=== PATIENT | female | born 1995 | race Two or more races ===

== ENCOUNTER 2018-04-24 02:03 | Emergency (ER) | payer OTHER ==
[~2018-04-24] VITALS: Ht 154.9 cm; Wt 52.9 kg
--- NOTE | 2018-04-24 02:14 | ED.ADGEN ---
Past History Past Medical History: UTI Adult General Chief Complaint Chief Complaint ".. I got this back pain... here on the Lt.. lower.. I was in golf game yesterday.. and maybe pulled a muscle...".. " I was to fly back this morning to [facility].. but I got sick....." HPI HPI Patient is a 22 year old female who presents with above hx and complaint Lt. lower back pain. Pt. denies back pain or back injury yesterday. Pt. did injury Lt shoulder yesterday during golf game yesterday. Pt. Visiting from [facility]. Pt. has a current fever and lt flank pain. No prior hx of UTI, STD or back injury. Pt. normally healthy. No specific ill contacts. No hx of renal stones. No hx of immunosuppression. Review of Systems Review of Systems Constitutional: Denies fever or chills []( Has fever on presentation) Eyes: Denies change in visual acuity, redness, or eye pain [] HENT: Denies nasal congestion or sore throat [] Respiratory: Denies cough or shortness of breath [] Cardiovascular: No additional information not addressed in HPI [] GI: Denies abdominal pain, nausea, vomiting, bloody stools or diarrhea [] : Denies dysuria or hematuria [] Musculoskeletal: Complaints of Lt lower back pain and Lt shoulder pain. Integument: Denies rash or skin lesions [] Neurologic: Denies headache, focal weakness or sensory changes [] Endocrine: Denies polyuria or polydipsia [] All other systems were reviewed and found to be within normal limits, except as documented in this note. Family History Family History Non-contributory Current Medications Current Medications Current Medications Medications (Trade) Dose Ordered Sig/Bebe Start Time Stop Time Status Last Admin Dose Admin Ceftriaxone Sodium 1 gm/ Sodium Chloride 50 ml @ 100 mls/hr 1X ONCE 04/24/18 03:00 04/24/18 03:29 DC 04/24/18 03:13 100 MLS/HR Ceftriaxone Sodium (Rocephin) 1 gm STK-MED ONCE 04/24/18 03:07 04/24/18 03:08 DC Ketorolac Tromethamine (Toradol) 30 mg 1X ONCE 04/24/18 03:00 04/24/18 03:01 DC 04/24/18 03:12 30 MG Lactated Ringer's 1,000 ml @ 75 mls/hr 1X ONCE 04/24/18 04:00 04/24/18 04:40 DC 04/24/18 03:41 75 MLS/HR Phenazopyridine HCl (Pyridium) 200 mg 1X ONCE 04/24/18 04:30 04/24/18 04:31 DC 04/24/18 04:26 200 MG Sodium Chloride 50 ml @ As Directed STK-MED ONCE 04/24/18 03:07 04/24/18 03:08 DC Trimethoprim/ Sulfamethoxazole (Bactrim Ds) 1 tab 1X ONCE 04/24/18 04:00 04/24/18 04:01 DC 04/24/18 04:26 1 TAB See Nursing for home meds. Allergies Allergies Allergies Coded Allergies Type Severity Reaction Last Updated Verified No Known Drug Allergies 04/24/18 No Physical Exam Physical Exam Constitutional: Well developed, well nourished, moderately acute distress, non- toxic appearance. [] HENT: Normocephalic, atraumatic, bilateral external ears normal, oropharynx moist, no oral exudates, nose normal. [] Eyes: PERRLA, EOMI, conjunctiva normal, no discharge. [] Neck: Normal range of motion, no tenderness, supple, no stridor. [] Cardiovascular:Heart rate regular rhythm, no murmur [] Lungs & Thorax: Bilateral breath sounds clear to auscultation [] Abdomen: Bowel sounds normal, soft, mild supra pubic tenderness, no masses, no pulsatile masses. [] Declines pelvic exam at this time. Skin: Warm, dry, no erythema, no rash. [] Back: Lt.lower Lumbar tenderness, mild Lt CVA tenderness. [] Extremities: mild tenderness Lt shoulder, no cyanosis, no clubbing, ROM intact, no edema. [] Neurologic: Alert and oriented X 3, normal motor function, normal sensory function, no focal deficits noted. []DTR + 2 patella. Psychologic: Affect anxious, judgement normal, mood normal. [] Current Patient Data Vital Signs Vital Signs Date Time Temp Pulse Resp B/P (MAP) Pulse Ox O2 Delivery O2 Flow Rate FiO2 04/24/18 04:15 100.1 115 16 106/69 (81) 100 Room Air Lab Results Laboratory Tests Test 04/24/18 01:48 04/24/18 02:30 04/24/18 02:58 POC Urine HCG, Qualitative hcg negative (Negative) Urine Collection Type Unknown Urine Color Yellow Urine Clarity Hazy Urine pH 7.0 Urine Specific [place] 1.015 Urine Protein 100 mg/dl (NEG-TRACE) Urine Glucose (UA) Neg mg/dL (NEG) Urine Ketones (Stick) 15 mg/dL (NEG) Urine Blood Trace (NEG) Urine Nitrite Neg (NEG) Urine Bilirubin Neg (NEG) Urine Urobilinogen Dipstick 1 mg/dL (0.2 mg/dL) Urine Leukocyte Esterase Large (NEG) Urine RBC Occ /HPF (0-2) Urine WBC >40 /HPF (0-4) Urine Squamous Epithelial Cells Few /LPF Urine Bacteria Many /HPF (0-FEW) Urine Opiates Screen Neg (NEG) Urine Methadone Screen Neg (NEG) Urine Barbiturates Neg (NEG) Urine Phencyclidine Screen Neg (NEG) Urine Amphetamine/Methamphetamine Neg (NEG) Urine Benzodiazepines Screen Neg (NEG) Urine Cocaine Screen Neg (NEG) Urine Cannabinoids Screen Neg (NEG) Urine Ethyl Alcohol Neg (NEG) White Blood Count 17.4 x10^3/uL (4.0-11.0) H Red Blood Count 4.47 x10^6/uL (3.50-5.40) Hemoglobin 12.2 g/dL (12.0-15.5) Hematocrit 36.6 % (36.0-47.0) Mean Corpuscular Volume 82 fL (79-100) Mean Corpuscular Hemoglobin 27 pg (25-35) Mean Corpuscular Hemoglobin Concent 33 g/dL (31-37) Red Cell Distribution Width 13.4 % (11.5-14.5) Platelet Count 295 x10^3/uL (140-400) Neutrophils (%) (Auto) 93 % (31-73) H Lymphocytes (%) (Auto) 5 % (24-48) L Monocytes (%) (Auto) 2 % (0-9) Eosinophils (%) (Auto) 0 % (0-3) Basophils (%) (Auto) 0 % (0-3) Neutrophils # (Auto) 16.2 x10^3uL (1.8-7.7) H Lymphocytes # (Auto) 0.8 x10^3/uL (1.0-4.8) L Monocytes # (Auto) 0.3 x10^3/uL (0.0-1.1) Eosinophils # (Auto) 0.0 x10^3/uL (0.0-0.7) Basophils # (Auto) 0.1 x10^3/uL (0.0-0.2) Segmented Neutrophils % 84 % (35-66) H Band Neutrophils % 11 % (0-9) H Lymphocytes % 5 % (24-48) L Platelet Estimate Adequate (ADEQUATE) Sodium Level 137 mmol/L (136-145) Potassium Level 3.3 mmol/L (3.5-5.1) L Chloride Level 101 mmol/L (98-107) Carbon Dioxide Level 26 mmol/L (21-32) Anion Gap 10 (6-14) Blood Urea Nitrogen 10 mg/dL (7-20) Creatinine 0.7 mg/dL (0.6-1.0) Estimated GFR (Cockcroft-Gault) 106.7 Glucose Level 98 mg/dL (70-99) Calcium Level 8.6 mg/dL (8.5-10.1) Total Bilirubin 0.6 mg/dL (0.2-1.0) Direct Bilirubin 0.1 mg/dL (0.0-0.2) Aspartate Amino Transferase (AST) 15 U/L (15-37) Alanine Aminotransferase (ALT) 15 U/L (14-59) Alkaline Phosphatase 61 U/L (46-116) Total Protein 7.7 g/dL (6.4-8.2) Albumin 3.6 g/dL (3.4-5.0) EKG EKG [] Radiology/Procedures Radiology/Procedures [] Course & Med Decision Making Course & Med Decision Making Pertinent Labs and Imaging studies reviewed. (See chart for details). Pt. to push vit. c drinks and fruit juices. Take tylenol and ibuprofen for pain. Take Bactrim DS twice a day. Must follow up urine cultures. Return if any concerns. Pt. reports marked improvement of symptoms at time of discharge. [] Final Impression Final Impression 1. Back Pain 2. UTI[] Dragon Disclaimer Dragon Disclaimer This electronic medical record was generated, in whole or in part, using a voice recognition dictation system. ELZBIETA WALLER MD Apr 24, 2018 02:14
[2018-04-24 02:59] LABS: BARBITURATES NEG (NEG); BENZODIAZEPINES NEG (NEG); CANNABINOIDS NEG (NEG); COCAINE NEG (NEG); METHADONE NEG (NEG); OPIATES NEG (NEG); PHENCYCLIDINE NEG (NEG)
[2018-04-24 03:00] LABS: CLARITY,URINE HAZY; COLOR,URINE YELLOW
[2018-04-24] MEDS ORDERED: KETOROLAC 30 MG/ML VIAL. IV ONE (03:00)
[2018-04-24] MEDS ORDERED: IV RINGERS SOLUTION,LACTATED 1,000 ML IV SCH (03:00)
[2018-04-24 03:01] LABS: BACTERIA,URINE MANY /HPF (0-FEW); BILIRUBIN,URINE NEG (NEG); GLUCOSE,URINE NEG (NEG); NITRITE,URINE NEG (NEG); RBC,URINE OCC /HPF (0-2); SQUAMOUS EPITHELIAL CELL,UR FEW /LPF; UROBILINOGEN,URINE 1 mg/dL (0.2 mg/dL); WBC,URINE >40 /HPF (0-4)
[2018-04-24 03:04] LABS: AMPHETAMINE/METHAMPHETAMINE NEG (NEG)
[2018-04-24] MEDS ORDERED: IV NORMAL SALINE 50ML 50 ML ONE (03:07)
[2018-04-24] MEDS ORDERED: cefTRIAXone SODIUM 1 GM VIAL IV ONE (03:07)
[2018-04-24 03:18] LABS: BASO # 0.1 x10^3/uL (0.0-0.2); BASO % 0 % (0-3); EOS % 0 % (0-3); HEMATOCRIT 36.6 % (36.0-47.0); HEMOGLOBIN 12.2 g/dL (12.0-15.5); LYMPH # 0.8 x10^3/uL (1.0-4.8); LYMPH % 5 % (24-48); MEAN CORPUSCULAR HEMOGLOBIN 27 pg (25-35); MEAN CORPUSCULAR HGB CONC 33 g/dL (31-37); MEAN CORPUSCULAR VOLUME 82 fL (79-100); MONO # 0.3 x10^3/uL (0.0-1.1); MONO % 2 % (0-9); NEUT # 16.2 x10^3uL (1.8-7.7); NEUT % 93 % (31-73); PLATELET COUNT 295 x10^3/uL (140-400); RED BLOOD COUNT 4.47 x10^6/uL (3.50-5.40); RED CELL DISTRIBUTION WIDTH 13.4 % (11.5-14.5); WHITE BLOOD COUNT 17.4 x10^3/uL (4.0-11.0)
[2018-04-24 03:26] LABS: ALBUMIN 3.6 g/dL (3.4-5.0); CALCIUM 8.6 mg/dL (8.5-10.1); CREATININE 0.7 mg/dL (0.6-1.0); DIRECT BILIRUBIN 0.1 mg/dL (0.0-0.2); GFR 106.7; POTASSIUM 3.3 mmol/L (3.5-5.1); TOTAL BILIRUBIN 0.6 mg/dL (0.2-1.0); TOTAL PROTEIN 7.7 g/dL (6.4-8.2)
[2018-04-24 03:43] LABS: % BANDS 11 % (0-9); % LYMPHS 5 % (24-48); % SEGS 84 % (35-66); PLT ESTIMATE ADEQUATE (ADEQUATE)
[2018-04-24] MEDS ORDERED: SMZ/TMP 800/160MG TABLET. PO ONE (04:00)
[2018-04-24] MEDS ORDERED: IV RINGERS SOLUTION,LACTATED 1,000 ML IV ONE (04:00)
[2018-04-24] MEDS ORDERED: SULF1TAB24 PO (04:07)
[2018-04-24 04:15] VITALS: BP 106/69
[2018-04-24] MEDS ORDERED: PHENAZOPYRIDINE 200 MG TABLET. PO ONE (04:30)
== END 2018-04-24 04:31 | disposition home or self-care (01) ==
LOC: ER 02:03
DX: N39.0 Urinary tract infection, site not specified (principal); M54.5 Low back pain; M25.512 Pain in left shoulder
CPT/HCPCS: 36415; 80048; 80076; 80307; 81001; 81025; 85007; 85025; 87040; 87086; 96365; 96375; 99284; J0696; J1885; J7120; 87186; G0479

== ENCOUNTER 2019-04-05 12:56 | Emergency (ER) | payer OTHER ==
[~2019-04-05] VITALS: Ht 154.9 cm; Wt 52.6 kg
[~2019-04-05 12:56] MED LIST: SULF1TAB24 PO
[2019-04-05 12:58] VITALS: BP 117/70
--- NOTE | 2019-04-05 13:39 | PHYS DOC ---
Past History Past Medical History: No Pertinent History, UTI Past Surgical History: No Surgical History Smoking: Non-smoker Alcohol Use: None Drug Use: None Adult General Chief Complaint Chief Complaint: EARACHE/EAR PAIN HPI HPI Patient is a 23-year-old female presents with left ear bleeding and dullness to sounds. Patient was going for a tandem parachute jump, 14,000 feet elevation, when she landed she pulled out her ear plug and noted there was blood. She denies any recent upper respiratory infection. Denies any pain. No nausea, vomiting, dizziness, no other complaints. No fever. Nothing makes the symptoms better or worse.[] Review of Systems Review of Systems Constitutional: Denies fever or chills [] Eyes: Denies change in visual acuity, redness, or eye pain [] HENT: Denies nasal congestion or sore throat, see history of present illness [] Respiratory: Denies cough or shortness of breath [] Cardiovascular: No chest pain or palpitations[] GI: Denies abdominal pain, nausea, vomiting, bloody stools or diarrhea [] : Denies dysuria or hematuria [] Musculoskeletal: Denies back pain or joint pain [] Integument: Denies rash or skin lesions [] Neurologic: Denies headache, focal weakness or sensory changes [] Endocrine: Denies polyuria or polydipsia [] All other systems were reviewed and found to be within normal limits, except as documented in this note. Allergies Allergies Allergies Coded Allergies Type Severity Reaction Last Updated Verified No Known Drug Allergies 04/24/18 No Physical Exam Physical Exam Constitutional: Well developed, well nourished, no acute distress, non-toxic appearance. [] HENT: Normocephalic, atraumatic, bilateral external ears normal, left TM has a perforation approximately the 6 o'clock position. No active bleeding, there is blood in the year canal. Oropharynx moist, no oral exudates, nose normal. [] Eyes: PERRLA, EOMI, conjunctiva normal, no discharge. [] Neck: Normal range of motion, no tenderness, supple, no stridor. [] Cardiovascular:Heart rate regular rhythm, no murmur [] Lungs & Thorax: Bilateral breath sounds clear to auscultation [] Abdomen: Not Examined[] Skin: Warm, dry, no erythema, no rash. [] Back: No tenderness, no CVA tenderness. [] Extremities: No tenderness, no cyanosis, no clubbing, ROM intact, no edema. [] Neurologic: Alert and oriented X 3, normal motor function, normal sensory function, no focal deficits noted. [] Psychologic: Affect normal, judgement normal, mood normal. [] EKG EKG [] Radiology/Procedures Radiology/Procedures [] Course & Med Decision Making Course & Med Decision Making Pertinent Labs and Imaging studies reviewed. (See chart for details) Medical decision making: Patient appears to have a perforated TM secondary to barotrauma. There is no evidence of an infection. No evidence meningitis, encephalitis, or intractable dizziness.[] Dragon Disclaimer Dragon Disclaimer This electronic medical record was generated, in whole or in part, using a voice recognition dictation system. Departure Departure: Impression: Primary Impression: Tympanic membrane perforation Disposition: 01 HOME, SELF-CARE Condition: IMPROVED Referrals: RADHA KEBEDE PA-C (PCP) Follow-up in 2 days Patient Instructions: Tympanic Membrane Perforation-SportsMed Additional Instructions: Follow-up with your regular doctor in 2 days. No swimming. Wear plugs when you take a shower to prevent excess water from getting in the ear. Return to the ER if worsening pain, worsening bleeding, purulent drainage, or any other concerns. Problem Qualifiers Primary Impression: Tympanic membrane perforation Laterality: left Qualified Codes: H72.92 - Unspecified perforation of tympanic membrane, left ear ANTHONYSHAWNSOHEILA MULLINSJENNIFER VILLANUEVA Apr 05, 2019 13:39
== END 2019-04-05 13:48 | disposition home or self-care (01) ==
LOC: ER 12:56
DX: H72.92 Unspecified perforation of tympanic membrane, left ear (principal); Z87.440 Personal history of urinary (tract) infections
CPT/HCPCS: 99281

== ENCOUNTER 2020-02-14 04:15 | Emergency (ER) | payer OTHER ==
[~2020-02-14] VITALS: Ht 154.9 cm; Wt 52.9 kg
[2020-02-14 04:25] VITALS: BP 117/70
[2020-02-14] MEDS ORDERED: CARB-116 OT (04:48)
--- NOTE | 2020-02-14 04:48 | PHYS DOC ---
Past History Past Medical History: No Pertinent History, UTI Past Surgical History: Other Additional Past Surgical Histo: Ear tubes Smoking: Non-smoker Alcohol Use: None Drug Use: None General Adult EDM: Chief Complaint: EARACHE/EAR PAIN HPI: HPI: 24-year-old female reports awakening early this morning with report of sensation that her right ear was "plugged". Patient reports that had a similar experience over the past 2 days for which patient trialed using a beeswax candle to dry out the wax. Patient reports issues with her ears and with pressure especially when she flies. Denies fever or chills. Denies nasal congestion. Review of Systems: Review of Systems: Constitutional: Denies fever or chills Eyes: Denies redness or eye pain HENT: Denies nasal congestion; reports sensation that her right ear is plugged Respiratory: Denies cough or shortness of breath Cardiovascular: Denies chest pain or palpitations GI: Denies abdominal pain, nausea, or vomiting : Denies dysuria or hematuria Musculoskeletal: Denies back pain or joint pain Integument: Denies rash or skin lesions Neurologic: Denies headache, focal weakness or sensory changes Complete systems were reviewed and found to be within normal limits, except as documented in this note. Allergies: Allergies: Allergies Coded Allergies Type Severity Reaction Last Updated Verified No Known Drug Allergies 04/24/18 No Physical Exam: PE: Constitutional: Well developed, well nourished, no acute distress, non-toxic appearance HENT: Normocephalic, atraumatic, oropharynx moist, right TM obscured secondary to impacted cerumen, left TM clear with minimal cerumen Eyes: Conjunctiva normal, no discharge Neck: Normal range of motion, no tenderness, supple Lungs & Thorax: No respiratory distress, equal chest rise and fall Skin: Warm, dry, no erythema, no rash Neurologic: Alert and oriented X 3, no focal deficits noted Psychologic: Affect normal, judgment normal Current Patient Data: Vital Signs: Vital Signs Date Time Temp Pulse Resp B/P (MAP) Pulse Ox O2 Delivery O2 Flow Rate FiO2 02/14/20 04:25 98.1 20 117/70 (86) Room Air EKG: EKG: [] Radiology/Procedures: Radiology/Procedures: [] Course & Med Decision Making: Course & Med Decision Making Patient presents with history of present illness and physical exam consistent for impacted cerumen of right ear. Irrigation performed with a 50-50 mix of hydrogen peroxide and warm water. Large cerumen bolus was successfully moved more externally to allow successful removal with a curet. Patient does report interval improvement of symptoms. Patient did experience some slight dizziness during irrigation which upon resolution was resolved. Patient stable for discharge with outpatient follow-up with PCP. Discussed findings and plan with patient, who acknowledges understanding and agreement. Dragon Disclaimer: Dragon Disclaimer: This electronic medical record was generated, in whole or in part, using a voice recognition dictation system. Additional Procedures Progress Verbal consent obtained. Time out performed. Hand hygiene utilized. Copious irrigation performed through a 16-gauge Angiocath with 50-50 mix of warm water a nd hydrogen peroxide. Patient does did experience one episode of dizziness at which point irrigation was terminated. Upon reexamination of ear canal a large cerumen bolus had partially extracted itself. A lighted curette was then utilized with successful removal of wax. Reexamination of the ear canal with scant wax noted. TM clear without perforation or erythema.. Patient otherwise tolerated procedure well and without difficulty. Patient reports interval improvement in hearing. Departure Departure: Impression: Primary Impression: Impacted cerumen of right ear Disposition: HOME, SELF-CARE Condition: IMPROVED Referrals: RUI WOOD MD (PCP) Patient Instructions: Cerumen Impaction Additional Instructions: Call your insurance company for a recommendation on an Ear, Nose, & Throat. Scripts Carbamide Peroxide (EAR DROPS) 15 Ml Drops 6 DROP OT BID PRN for EAR WAX, #15 ML Prov: REHANA VALDES DO 02/14/20 REHANA VALDES DO Feb 14, 2020 04:48
== END 2020-02-14 04:50 | disposition home or self-care (01) ==
LOC: ER 04:15
DX: H61.21 Impacted cerumen, right ear (principal); Z87.440 Personal history of urinary (tract) infections
CPT/HCPCS: 69210; 99284